=== PATIENT | male | born 1965 | race Caucasian/White ===

== ENCOUNTER 2023-10-13 14:02 | Outpatient (OUT) | payer OTHER, SELFPAY ==
--- NOTE | 2023-10-13 14:23 | XR_ITS ---
The [address] [address] Patient Name: PEGGY KEMP MRN: [id number] date: 1965 Sex: M Assigned Patient Location: LAB Current Patient Location: Accession/Order Number: [id number] Exam Date: 10/13/2023 14:30 Report Date: 10/14/2023 07:31 At the request of: NADIA PONCE Procedure: XR abdomen 1V EXAMINATION: XR abdomen 1V HISTORY: Kidney Stone N20.0 COMPARISON: 10/07/2022 FINDINGS: KIDNEY/URETER - RIGHT: No visible renal or ureteral calcifications. KIDNEY/URETER - LEFT: Mid pole nephrolithiasis, stable PELVIS: No visible ureteral calcifications. Any visible calcifications favor phleboliths. BOWEL: No abnormal dilation or deviation. BONES: No acute abnormality. OTHER: Negative. No abnormal gaseous collections. XR/XR abdomen 1V IMPRESSION: Stable left nephrolithiasis measuring up to 4 mm Electronically authenticated by: SAMIRA VARNER Date: 10/14/2023 07:31
== END 2023-10-13 14:03 | disposition home or self-care (01) ==
LOC: LAB 14:08
PROVIDERS: PCP Family Medicine; Visit Provider Urology
DX: N40.0 Benign prostatic hyperplasia without lower urinary tract symptoms (principal); N20.0 Calculus of kidney
CPT/HCPCS: 36415; 74018; 84153

== ENCOUNTER 2024-10-21 08:24 | Outpatient (OUT) | payer OTHER, SELFPAY ==
--- NOTE | 2024-10-21 08:49 | XR_ITS ---
The [address] [address] Patient Name: PEGGY KEMP MRN: [id number] date: 1965 Sex: M Assigned Patient Location: LAB Current Patient Location: LAB Accession/Order Number: [id number] Exam Date: 10/21/2024 09:22 Report Date: 10/21/2024 09:25 At the request of: NADIA PONCE MD Procedure: XR abdomen 1V SINGLE VIEW ABDOMEN COMPARISON: 10/13/2023 CLINICAL DATA: Follow-up in patient with history of left-sided stone. Supine views of the abdomen and pelvis were obtained. A 3 mm calcified stone is again noted at the midpole of the left kidney. There are no obvious radiopaque renal stones on the right however the kidney is also partially obscured by bowel gas and stool. No suspect ureteral or bladder stones are noted. No soft tissue masses are seen. The bony structures are intact. XR/XR abdomen 1V IMPRESSION: CONTINUED LEFT NEPHROLITHIASIS. Impression dictated by: Jennifer Rodriguez M.D.10/21/2024 9:25 AM Dictation Location: [place] [address] Electronically authenticated by: [id number] Date: 10/21/2024 09:25
[2024-10-21 09:46] LABS: Prostate Specific Antigen Dx 2.48 ng/mL (<=4.00)
== END 2024-10-21 08:25 | disposition home or self-care (01) ==
PROVIDERS: Visit Provider Urology
DX: N20.0 Calculus of kidney (principal); N40.0 Benign prostatic hyperplasia without lower urinary tract symptoms
CPT/HCPCS: 36415; 74018; 84153

== ENCOUNTER 2025-01-13 09:31 | Outpatient (OUT) | payer OTHER, SELFPAY ==
--- OUTSIDE RECORDS SUMMARY | 2025-01-13 09:37 | XMS_ITS | Data Portability ---
Author Organization [place] [facility] Address [address] [place] [address] Assessment No assessment recorded. Plan of Treatment Reminders Order Date Submit Date Provider Last Modified By Organization Details Last Modified Time Details Appointments None recorded . Lab None recorded . Referral None recorded . Procedures None recorded . Surgeries None recorded . Imaging XR, ankle 025 09/08/19 25 [email or web address] [facility], [address], [place], [address], 18:29:36 XR, lumbar spine 025 09/08/19 25 [email or web address] [facility], [address], [place], [address], 18:29:17 Medication Orders None recorded . Patient TargetsNo targets recorded. Patient InstructionsNo instructions recorded. Reason for Referral None Reported. Results Created Date Observation Date Name Description Value Unit Range Abnormal Flag Note LastModifiedBy Organization Detail LastModifiedTime 09/06/19 25 09/06/2024 XR, ankle No observ ation record ed. BARCODE Not Available 2024 16:50:43 09/08/19 25 09/08/2024 XR, lumba r spine No observ ation record ed. [email or web address] [facility] [address], [place], [address], 09/10/2024 12:18:21 09/08/19 25 09/08/2024 XR, ankle No observ ation record ed. [email or web address] [facility] [address], [place], [address], 09/08/2024 18:32:08 Result Notes None recorded. Medical Equipment None Reported. Medications Name Sig Start Date Stop Date Status Note LastModified by Organization Details LastModified Time atorvastatin 40 mg tablet active Not Available Not Available Not Available hydrocodone 5 mg-acetamino phen 325 mg tablet TAKE ONE TABLET BY MOUTH EVERY 6 HOURS NEEDED FOR SEVERE pain FOR UP TO FIVE DAYS. active Not Available Not Available N ot Available pantoprazole 20 mg tablet,delay ed release active Not Available Not Available N ot Available cephalexin 500 mg capsule TAKE ONE CAPSULE BY MOUTH TWICE DAILY FOR 10 DAYS active Not Available Not Available No t Available pantoprazole 40 mg tablet,delay ed release active Not Available Not Available N ot Available peg 3350-electro lytes 236 gram-22.74 gram-6.74 gram-5.86 gram solution take ACCORDING to PROCEDURE PREP INSTRUCTION S active Not Available Not Available No t Available FeroSul 325 mg (65 mg iron) tablet take 1 tablet by mouth twice a day active Not Available Not Available No t Available Vitals None Recorded Social History None recorded. Functional Status None recorded. Mental Status None recorded. Family History Nothing Reported. Medical History No medical history recorded. Past Encounters Encounter ID Performer Location Encounter Start Date Encounter Closed Date Diagnosis/Indication Diagnosis SNOMED-CT Code Diagnosis ICD10 Code Diagnosis Note [id number] Juan Ratliff MD [facility] [address] [place] [address] 09/06/2024 10:45:51 09/08/2024 09:24:00 Low back pain 956174127 M54.50 Pain of le ft ankle joint 5779002204 4239319 M25.572 Health Concerns Section Related Observation LastModified by Organization Detai ls LastModified Time None Recorded Concern Status LastModified by Organization Details LastModified Time None Recorded Advance Directives Directive None Recorded Payers Insurance Date Sequence Insurance Name Policy Number Policy Szymanski Covered Member ID Szymanski Member ID Guarantor Name 09/08/2024 1 *SELF PAY* Jesus Soto [facility] 09/08/2024 [employer] [facility] [id number] [facility]
--- OUTSIDE RECORDS SUMMARY | 2025-01-13 09:37 | XMS_ITS | Patient Health Record ---
Author Organization [facility] Address [address] [id number] Care Team Providers Care Human Resource Consultant Name Role Phone Khang Dinero Primary Care Provider Apurva Paredes Unavailable [phone] JulianMorgan perry Unavailable [phone] Allergies No Known Allergies Results Component Value Reference Range Notes Esophagogastroduodenoscopy ( EGD) Reviewed date:02/05/2024 09:21:11 AM Interpretation: Performing Lab: Notes/Report: Barium Swallow Reviewed date:09/03/2024 10:02:08 AM Interpretation: Performing Lab: Notes/Report: Reason For Referral No Information Medications Medication SIG (Take, Route, Frequency, Duration) Notes Start Date End Date Status Lipitor Atorvastin Active Pantoprazole Sodium 40 MG 1 tablet Orall y twice a day; Duration: 30 days Active Social History Tobacco Use: Social History Observation Description Date Details (start date - stop date) Never Smoker NA - NA Alcohol Screen Question Answer Notes Did you have a drink contain ing alcohol in the past year? Yes How often did you have a dri nk containing alcohol in the past year? 2 to 4 times a month (2 points) Points 2 Interpretation Negative Smoking Question Answer Notes Status nonsmoker Section Notes: . . . . . 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 Problem Hematemesis (8178611) Hematemesis, unspecified whether nausea present (K92.0) Active confirmed Vital Signs Heart Rate 68 /min 10/28/2024 Blood pressure diastolic 80 mm Hg 10/28/2024 Height 68 in 10/28/2024 Blood pressure systolic 130 mm Hg 10/28/2024 Weight 190 lbs 10/28/2024 BMI 28.89 kg/m2 10/28/2024 Encounters Encounter Location Date Provider Diagnosis [facility] [address] [place] [id number] 04/08/2024 Morgan Jordan [facility] [address] [id number] 02/05/2024 Apurva Kay Mckinley's esophagus K22.70 and Iron deficiency anemia D50.9 [facility] [address] [id number] 06/09/2024 Apurva Kay Dysphagia R13.10 and Mckinley's esophagus K22.70 [facility] [address] [place] [id number] 10/28/2024 Apurva Kay Dysphagia R13.10 and Mckinley's esophagus K22.70 [facility] [address] [place] [id number] 02/05/2024 Apurva Kay [facility] [address] [place] [id number] 04/13/2024 Apurva Kay [facility] [address] [id number] 09/03/2024 Apurva Kay Dysphagia R13.10 [facility] [address] [place] [id number] 10/28/2024 Apurva Kay [facility] [address] [place] [address] [id number] 11/15/2024 Apurva Kay Assessments Encounter Date Diagnosis (ICD Code) Assessment Notes Treatment Notes Treatment Clinical Notes Section Notes 02/05/2024 Mckinley's esophagus (ICD-10 - K22.70) Will attempt to obtain records from [facility] and will plan for a repeat EGD in 03/2024, as recommended. Once records are reviewed, if recommendations are for VCE after 6 months, will complete in 06/2024. In the meantime, will continue to monitor labs, completing per oncology, who he continues to follow. Should remain on daily iron supplementation, as well as life-long PPI therapy, given findings of long-segment Mckinley's and increased risk of malignancy associated with such. Pending findings of repeat EGD, ongoing recommendations will be determined. He was also reminded that PPIs work best when taken on an empty stomach, ~30 minutes before meals. 06/09/2024 Dysphagia (ICD-10 - R13.10) Given dysphagia that continues to occur intermittently, have considered that esophageal etiologies may be to blame, though dilation did not appear necessary, based on EGD findings. Have considered EM, though he does not believe that esophageal causes are to blame, feeling that difficulties occur when swallowing. Have ordered a barium swallow study to evaluate for such and based on findings, will considered if additional testing verses treatment is necessary. In the meantime, will continue with twice daily PPI therapy and reminded him that PPIs work best when taken on an empty stomach, ~30 minutes before meals. 09/03/2024 Dysphagia (ICD-10 - R13.10) 10/28/2024 Dysphagia (ICD-10 - R13.10) Obtain EM results, when available. Consider referral to ENT. He recently completed the EM, but I do not yet have these results. Other testing has been unremarkable, not explaining the cause of ongoing dysphagia. Pending unremarkable findings with the EM, would recommend follow up with ENT to assess for other possible causes. He is not currently interested in pursuing additional testing/treatment, telling me that he is getting used to the symptoms, knowing that he has to drink water when he eats. Will reassess following review of EM results. Should continue on PPI therapy, in the meantime and was reminded that PPIs work best when taken on an empty stomach, ~30 minutes before meals. Additionally, discussed with him that he is due for a repeat EGD in 03/2025, due to findings of Mckinley's. Will plan for follow up with him after the EGD, unless necessary sooner. 10/28/2024 Mckinley's esophagus (ICD-10 - K22.70) He recently completed the EM, but I do not yet have these results. Other testing has been unremarkable, not explaining the cause of ongoing dysphagia. Pending unremarkable findings with the EM, would recommend follow up with ENT to assess for other possible causes. He is not currently interested in pursuing additional testing/treatment, telling me that he is getting used to the symptoms, knowing that he has to drink water when he eats. Will reassess following review of EM results. Should continue on PPI therapy, in the meantime and was reminded that PPIs work best when taken on an empty stomach, ~30 minutes before meals. Additionally, discussed with him that he is due for a repeat EGD in 03/2025, due to findings of Mckinley's. Will plan for follow up with him after the EGD, unless necessary sooner. 06/09/2024 Mckinley's esophagus (ICD-10 - K22.70) Given dysphagia that continues to occur intermittently, have considered that esophageal etiologies may be to blame, though dilation did not appear necessary, based on EGD findings. Have considered EM, though he does not believe that esophageal causes are to blame, feeling that difficulties occur when swallowing. Have ordered a barium swallow study to evaluate for such and based on findings, will considered if additional testing verses treatment is necessary. In the meantime, will continue with twice daily PPI therapy and reminded him that PPIs work best when taken on an empty stomach, ~30 minutes before meals. 02/05/2024 Iron deficiency anemia (ICD-10 - D50.9) Obtain records from [facility] This consultation was provided in collaboration with Dr. Sandy Will attempt to obtain records from [facility] and will plan for a repeat EGD in 03/2024, as recommended. Once records are reviewed, if recommendations are for VCE after 6 months, will complete in 06/2024. In the meantime, will continue to monitor labs, completing per oncology, who he continues to follow. Should remain on daily iron supplementation, as well as life-long PPI therapy, given findings of long-segment Mckinley's and increased risk of malignancy associated with such. Pending findings of repeat EGD, ongoing recommendations will be determined. He was also reminded that PPIs work best when taken on an empty stomach, ~30 minutes before meals. Plan Of Treatment Pending Test Test Name Order Date Esophageal Manometry 09/03/2024 Double balloon enteroscopy 11/07/2023 Insurance Providers Payer Name Payer Address Payer Phone Subscriber Number Group Number Insured Name Patient Relationship to Insured Coverage Start Date Coverage End Date [facility] [address] [place] [address] [id number] Refugio Soto Self - patient is the insured Medical (General) History Medical History History ICD Code kidney stones tonsillitis overweight hyperlipidemia gastric ulcer rotator cuff tear - Right Hiatal hernia esophagitis gastritis duodenal ulcer intestinal metaplasia hemorrhoids diverticulosis Mckinley's esophagus iron deficiency anemia Surgical History Surgery Date(Month/Year) tonsillectomy colonoscopy kidney stone removal EGD shoulder surgery - Right double balloon enteroscopy foot surgery
--- OUTSIDE RECORDS SUMMARY | 2025-01-13 09:37 | XMS_ITS | Encounter Summary ---
Author Organization [facility] Address [address] [place] [address] Care Team Providers Care Police Reserves Commander Name Role Phone Eva Cole MD Unavailable Juan Carlos Castellano MD Primary Care Provider [phone] Encounter Details Date Type Department Care Team ([facility] st Contact Info) Description 05/03/2024 Abstract [facility] [address] [place] [address] Jan Roberts, DPM FACFAS [address] [place] [address] Social History Tobacco Use Types Packs/Day Years Used Date Smoking Tobacco: Never Smokeless Tobacco: Never Alcohol Use Standard Drinks/Week Comments Not Currently 0 (1 standard drink = 0.6 oz pur e alcohol) Sex and Gender Information Value Date Recorded Sex Assigned at Male 03/08/2024 11:42 AM EDT Legal Sex Male 11:10 PM EDT Gender Identity Male 03/08/2024 11:42 AM EDT Sexual Orientation Straight 03/08/2024 11 :42 AM EDT documented as of this encounter Plan of Treatment Not on file documented as of this encounter Visit Diagnoses Not on filedocumented in this encounter Care Teams Police Reserves Commander Relationship Specialty Start Date End Date Juan Carlos Castellano MD [address] [place] [address] PCP - General Family Medicine 04/06/24 Eva Cole MD [address] [place] [address] Referring Physician Neurology 03/15/24 documented as of this encounter
--- OUTSIDE RECORDS SUMMARY | 2025-01-13 09:38 | XMS_ITS | Clinical Summary ---
Author Organization [employer] tem Address [id number] [address] [place] [address] Care Team Providers Care Family Practitioner Name Role Phone Unavailable Primary Care Provider Unavailabl e Allergies No known active allergies Social History Tobacco Use Types Packs/Day Years Used Date Smoking Tobacco: Never Assessed Sex and Gender Information Value Date Recorded Sex Assigned at Not on file Legal Sex Male 8:39 AM EDT Gender Identity Not on file Sexual Orientation Not on file Plan of Treatment Health Maintenance Due Date Last Done Comments Depression Screening 1979 Tobacco Screening 1979 Adult BMI Screening 1985 DTaP,Tdap and Td Vaccines (1 - Tdap) 1986 COVID-19 Vaccine (2 - season) 2024 Influenza Vaccine 03/21/2025 04/19/2024 Zoster (Shingles) Vaccine Completed 11/25/2022, 08/2022 Medical Devices Not on file Procedures Procedure Name Priority Date/Time Associated Diagnosis Comments RESP/PULM RESULTS REPORT (SCANNED INTO EHR) 10/14/2024 10:06 AM EDT from Last 3 Months Insurance [facility]
--- OUTSIDE RECORDS SUMMARY | 2025-01-13 09:38 | XMS_ITS | Clinical Summary ---
Author Organization [facility] Address [address] [place] [address] Care Team Providers Care Client Evaluator Name Role Phone Eva Cole MD Unavailable [phone] Juan Carlos Castellano MD Primary Care Provider Allergies No known active allergies Medications atorvastatin (Lipitor) 40 MG tablet 1 tab(s), Oral, Daily, # 90 tab(s), 3 Refill(s), [facility]acy: [facility], TAKE 1 TABLET DAILY, 172.72, cm, 08/18/23 13:05:00 EST, Height, 83.9, kg, 09/15/23 10:01:00 EST, Weight Dosing 09/29/2023 Active FeroSul 325 (65 Fe) MG tablet Take 1 tablet by mouth in the morning and 1 tablet before bedtime. Active pantoprazole (ProtoNix) 20 MG EC tablet 12/11/2023 Active Active Problems Problem Noted Date Diagnosed Date Hallux rigidus, right foot 05/07/2024 Hyperlipemia 03/15/2024 Plantar fasciitis 12/20/2023 Family History Relation Name Status Comments Father Mother Social History Tobacco Use Types Packs/Day Years Used Date Smoking Tobacco: Never Smokeless Tobacco: Never Tobacco Cessation:Counseling Given: Not Answered Alcohol Use Standard Drinks/Week Comments Never 0 (1 standard drink = 0.6 oz pur e alcohol) Sex and Gender Information Value Date Recorded Sex Assigned at Male 03/08/2024 11:42 AM EDT Legal Sex Male 11:10 PM EDT Gender Identity Male 03/08/2024 11:42 AM EDT Sexual Orientation Straight 03/08/2024 11 :42 AM EDT Last Filed Vital Signs Vital Sign Reading Time Taken Comments Blood Pressure - - Pulse - - Temperature 36.2 C (97.1 F) 06/23/2024 1:51 PM EST Respiratory Rate - - Oxygen Saturation - - Inhaled Oxygen Concentration - - Weight 80.3 kg (177 lb) 06/23/2024 1:51 PM EST Height 172.7 cm (5' 8 ) 06/23/2024 1:51 PM EST Body Mass Index 26.91 06/23/2024 1:51 PM EST Plan of Treatment Health Maintenance Due Date Last Done Comments CT Colonography 1967 FIT-DNA 1967 FIT 1967 Sigmoidoscopy 1967 FOBT 08/14/2023 08/14/2022 Colonoscopy 09/28/2033 09/29/2023, 09/29/2023, 08/22 Colorectal Cancer Screening 09/28/2033 Influenza Vaccine Completed 04/19/2024, , 05/06/2021, Additional history exists Insurance Care Teams Client Evaluator Relationship Specialty Start Date End Date Juan Carlos Castellano MD [address] [place] [address] PCP - General Family Medicine 04/06/24 Eva Cole MD [address] [place] [address] Referring Physician Neurology 03/15/24
--- OUTSIDE RECORDS SUMMARY | 2025-01-13 09:38 | XMS_ITS | Encounter Summary ---
Author Organization [facility] Address [address] [place] [address] Care Team Providers Care Loss Prevention Operations Manager Name Role Phone Eva Cole MD Unavailable Juan Carlos Castellano MD Primary Care Provider Encounter Details Date Type Department Care Team (Late st Contact Info) Description 03/18/2024 Abstract [facility] [address] [place] [address] Jan Roberts, DPM FACFAS [address] [place] [address] Social History Tobacco Use Types Packs/Day Years [...] on filedocumented in this encounter Care Teams Loss Prevention Operations Manager Relationship Specialty Start Date End Date Juan Carlos Castellano MD [address] [place] [address] PCP - General Family Medicine 04/06/24 Eva Cole MD [address] [place] [address] Referring Physician Neurology 03/15/24 documented as of this encounter
[2025-01-13 10:05] LABS: Basophils Absolute Auto 0.1 10^3/uL (0.0-0.1); Basophils Percent Auto 0.8 % (0.2-2.0); Eosinophils Absolute Auto 0.2 10^3/uL (0.0-0.7); Eosinophils Percent Auto 2.5 % (0.9-7.0); Immature Granulocytes Abs Auto 0.02 10^3/uL (0.00-0.03); Immature Granulocytes Pct Auto 0.3 % (0.0-0.5); Lymphocytes Absolute Auto 1.9 10^3/uL (1.2-3.8); Lymphocytes Percent Auto 30.4 % (20.5-60.0); Mean Corpuscular HGB Conc 34.7 g/dL (29.9-35.2); Mean Corpuscular Hemoglobin 31.8 pg (25.9-34.0); Mean Corpuscular Volume 91.8 fL (80.0-94.0); Mean Platelet Volume 9.6 fL (9.5-13.5); Monocytes Absolute Auto 0.5 10^3/uL (0.3-0.8); Monocytes Percent Auto 7.4 % (1.7-12.0); Neutrophils Absolute Auto 3.6 10^3/uL (1.4-6.5); Neutrophils Percent Auto 58.6 % (43.0-75.0); Platelet Count 209 10^3/uL (150-450); Red Blood Count 5.34 10^6/uL (4.70-6.10); White Blood Count 6.1 10^3/uL (4.0-11.0)
[2025-01-13 12:34] LABS: Percent Iron Saturation 25.1 %
[2025-01-13 12:37] LABS: Chol HDL Ratio 3.4; Cholesterol 216 mg/dL (<=200); HDL Cholesterol 63 mg/dL (40-60); Triglycerides 144 mg/dL (<=150); VLDL CHOLESTEROL 28.8 mg/dL
== END 2025-01-13 09:32 | disposition home or self-care (01) ==
LOC: LAB 09:34
DX: D50.9 Iron deficiency anemia, unspecified (principal); E78.2 Mixed hyperlipidemia
CPT/HCPCS: 36415; 80061; 83540; 83550; 85025

== ENCOUNTER 2025-01-13 09:39 | Outpatient (OUT) | payer OTHER, SELFPAY ==
[2025-01-13 12:47] LABS: Prostate Specific Antigen Dx 1.05 ng/mL (<=4.00)
== END 2025-01-13 09:40 | disposition home or self-care (01) ==
LOC: LAB 09:44
PROVIDERS: Visit Provider Urology
DX: D50.9 Iron deficiency anemia, unspecified (principal); E78.2 Mixed hyperlipidemia; R97.20 Elevated prostate specific antigen [PSA]
CPT/HCPCS: 36415; 80061; 83540; 83550; 84153; 85025

== ENCOUNTER 2025-04-19 08:27 | Outpatient (OUT) | payer OTHER, SELFPAY ==
--- OUTSIDE RECORDS SUMMARY | 2024-04-08 03:30 | XMS_ITS ---
Author Organization Telehealth Visit Address [address] [id number] Care Team Providers Care V Belt Builder Name Role Phone Khang Dinero Primary Care Provider UnavailApurva Stuart Unavailable [phone] Morgan Jordan [phone] REASON FOR VISIT Mckinley's esophagus Encounters Encounter Location Date Provider Diagnosis [facility] [address] [place] [phone] 04/08/2024 Morgan Jordan Plan Of Treatment No Information Progress Notes * Refugio KEMP EDOB:1965 (60 yo M)Acc No.[id number]:04/08/2024 Patient: Ale Refugio ZURITA Provider: Neil Jordan MD :1965 A ge:59 Y S ex:Male Date:04/08/2024 [facility] [facility] [place] Pcp:Khang Dinero * Images: Billing Information: * Visit Code: * Procedure Codes: * Electronic signature of Greg Jordan MD on 04/19/2025 at 08:31 AM EDT Sign off status: Pending * Provider: Neil Jordan MD Date: 04/08/2024 Generated for Printi ng/Faxing/eTransmitting on: 04/19/2025 08:31 AM EDT
--- OUTSIDE RECORDS SUMMARY | 2024-10-25 08:24 | XMS_ITS ---
Author Name Auto Generated Organization OHIP Support Name Relationship Address Phone CECY KEMP Next of Kin Unknown + Cecy Kemp Next of [address] [facility] [address] + CECY KEMP Next of Kin [address] [place] [address] + RAFIA CAVAZOS Next of Kin Unknown [phone] CECY KEMP Next of Kin [address] [place] [address] + ~([phone] KN, RAFIA Next of Kin Unknown [phone] CECY KEMP Next of Kin [address] [facility] [place] [address] + ~[phone] KNRAFIA WATTERS Next of Kin Unknown [phone] CECY KEMP Next of Kin [address] [place] [address] + ~([phone] DIRK RAFIA Next of Kin Unknown [phone] CECY KEMP Next of Kin [address] [place] [address] + ~([phone] DIRK RAFIA Next of Kin Unknown [phone] CECY KEMP Next of Kin [address] [place] [address] + DIRK RAFIA Next of Kin Unknown [phone] CECY KEMP Next of Kin [address] [place] [address] + ~[phone] KNOPALLER, RAFIA Next of Kin Unknown [phone] CECY KEMP Next of Kin [address] [place] [address] + ~([phone] KNEDLER, RAFIA Next of Kin Unknown [phone] CECY KEMP Next of Kin [address] [place] [address] + ~([phone] KNEDLER, RAFIA Next of Kin Unknown [phone] CECY KEMP Next of Kin [address] [facility] [place] [address] + KN, RAFIA Next of Kin Unknown [phone] CECY KEMP Next of Kin [address] [facility] [place] [address] + KN, RAFIA Next of Kin Unknown [phone] CECY KEMP Next of Kin [address] [facility] [place] [address] + KNEDJEANA, RAFIA Next of Kin Unknown [phone] CECY KEMP Next of Kin [address] [place] [address], [place] [address] + DIRK, RAFIA Next of Kin Unknown [phone] CECY KEMP Next of Kin [address] [facility] [place] [address] + KNOPALLER, RAFIA Next of Kin Unknown [phone] Care Team Providers Care Christmas Bell Ringer Name Role Phone ESTEPHANIE TEJEDA Attending Unavailable ESTEPHANIE TEJEDA Attending Unavailable ESTEPHANIE TEJEDA Attending Unavailable JOCELYNE CASTELLANO Attending Unavailable JOCELYNE CASTELLANO Referring Unavailable JOCELYNE CASTELLANO Attending Unavailable JOCELYNE CASTELLANO Referring Unavailable Jerome Gonzalez Admitting Unavailable NON STAFF Primary Care Unavailable Jerome Gonzalez Attending Unavailable Aura, Pola Attending Unavailab le Aura, Pola Admitting Unavailab le NON STAFF Primary Care Unavailable Dolce, Estephanie R Attending Unavailable Gonya, Eva Primary Care Unavailable Jerome Parra Unavailable Dolce, Estephanie R Admitting Unavailable Smolenski, Apurva Admitting Unavailable Smolenski, Apurva Attending Unavailable Gonya, Eva Primary Care Unavailable Gonya, Eva Primary Care Unavailable Aly, Johnna Admitting Unavailable Aly, Johnna Attending Unavailable Gonya, Eva Primary Care Unavailable Aly, Johnna Admitting Unavailable Aly, Johnna Attending Unavailable Gonya, Eva Primary Care Unavailable Gonya, Eva Attending Unavailable Juan Carlos Castellano Primary Care Unavailable Gonya, Vea Attending Unavailable Gonya, Eva Primary Care Unavailable Dolce, Estephanie R Admitting Unavailable Dolce, Estephanei R Attending Unavailable LENCHO HESTER Primary Care Unavailable GARSIA, Alonzo Garcia Attending Unavailable PROBLEMS DATE TYPE CONDITION / CODE ATTENDING STATUS GERTRUDIS [facility] 09/29/2024 Unknown Sleep apnea, uns pecified / G47.30(ICD-10) Jerome Gonzalez [facility] 09/29/2024 Unknown Psychophysiologi c insomnia / F51.04(ICD-10) Jerome Gonzalez. [facility] PROCEDURES No Procedure Records Found RESULTS PATIENT EDUCATION Observed: 10/25/2024 9:03 AM Status: F Source: [facility] Patient Education Oncology Prostate Cancer Screening Prostate cancer screening is testing that is done to check for the presence of prostate cancer in men. The prostate gland is a walnut-sized gland that is located below the bladder and in front of the rectum in males. The function of the prostate is to add fluid to semen during ejaculation. Prostate cancer is one of the most common types of cancer in men. Who should have prostate cancer screening? Screening recommendations vary based on age and other risk factors, as well as between the professional organizations who make the recommendations. In general, screening is recommended if: ??? You are age 50 to 70 and have an average risk for prostate cancer. You should talk with your health care provider about your need for screening and how often screening should be done. Because most prostate cancers are slow growing and will not cause , screening in this age group is generally reserved for men who have a 10- to 15-year life expectancy. ??? You are younger than age 50, and you have these risk factors: ? Having a father, brother, or uncle who has been diagnosed with prostate cancer. The risk is higher if your family member's cancer occurred at an early age or if you have multiple family members with prostate cancer at an early age. ? Being a male who is Black or is of Navjot or sub-Saharan descent. In general, screening is not recommended if: ??? You are younger than age 40. ??? You are between the ages of 40 and 49 and you have no risk factors. ??? You are 70 years of age or older. At this age, the risks that screening can cause are greater than the benefits that it may provide. If you are at high risk for prostate cancer, your health care provider may recommend that you have screenings more often or that you start screening at a younger age. How is screening for prostate cancer done? The recommended prostate cancer screening test is a blood test called the prostate-specific antigen (PSA) test. PSA is a protein that is made in the prostate. As you age, your prostate naturally produces more PSA. Abnormally high PSA levels may be caused by: ??? Prostate cancer. ??? An enlarged prostate that is not caused by cancer (benign prostatic hyperplasia, or BPH). This condition is very common in older men. ??? A prostate gland infection (prostatitis) or urinary tract infection. ??? Certain medicines such as male hormones (like testosterone) or other medicines that raise testosterone levels. A rectal exam may be done as part of prostate cancer screening to help provide information about the size of your prostate gland. When a rectal exam is performed, it should be done after the PSA level is drawn to avoid any effect on the results. Depending on the PSA results, you may need more tests, such as: ??? A physical exam to check the size of your prostate gland, if not done as part of screening. ??? Blood and imaging tests. ??? A procedure to remove tissue samples from your prostate gland for testing (biopsy). This is the only way to know for certain if you have prostate cancer. What are the benefits of prostate cancer screening? Screening can help to identify cancer at an early stage, before symptoms start and when the cancer can be treated more easily. ??? There is a small chance that screening may lower your risk of dying from prostate cancer. The chance is small because prostate cancer is a slow-growing cancer, and most men with prostate cancer from a different cause. What are the risks of prostate cancer screening? The main risk of prostate cancer screening is diagnosing and treating prostate cancer that would never have caused any symptoms or problems. This is called overdiagnosisand overtreatment. PSA screening cannot tell you if your PSA is high due to cancer or a different cause. A prostate biopsy is the only procedure to diagnose prostate cancer. Even the results of a biopsy may not tell you if your cancer needs to be treated. Slow-growing prostate cancer may not need any treatment other than monitoring, so diagnosing and treating it may cause unnecessary stress or other side effects. Questions to ask your health care provider ??? When should I start prostate cancer screening? What is my risk for prostate cancer? How often do I need screening? What type of screening tests do I need? How do I get my test results? What do my results mean? Do I need treatment? Where to find more information ??? The [place] Cancer [employer]: www.cancer.org ??? [employer] U[employer] Association: www.auanet.org Contact a health care provider if: ??? You have difficulty urinating. ??? You have pain when you urinate or ejaculate. ??? You have blood in your urine or semen. ??? You have pain in your back or in the area of your prostate. Summary ??? Prostate cancer is a common type of cancer in men. The prostate gland is located below the bladder and in front of the rectum. This gland adds fluid to semen during ejaculation. ??? Prostate cancer screening may identify cancer at an early stage, when the cancer can be treated more easily and is less likely to have spread to other areas of the body. ??? The prostate-specific antigen (PSA) test is the recommended screening test for prostate cancer, but it has associated risks. ??? Discuss the risks and benefits of prostate cancer screening with your health care provider. If you are age 70 or older, the risks that screening can cause are greater than the benefits that it may provide. This information is not intended to replace advice given to you by your health care provider. Make sure you discuss any questions you have with your health care provider. Document Revised: 12/31/2021 Document Reviewed: 12/31/2021 [employer] Patient Education ? 2023 [employer]. AMBULATORY VISIT SUMMARY Observed: 10/25 8:24 AM Status: F Source: [facility] Ambulatory Visit Summary REFUGIO KEMP :1965 Visit Date:10/25/2024 Ambulatory Visit Instructions Your Diagnosis Elevated PSA BPH without urinary obstruction Kidney stone Your Care Team Attending Physician - Alonzo GARSIA MD Primary Care Physician - LENCHO HESTER DO This Is Your Medications List Contact prescribing physician if questions or concerns atorvastatin pantoprazole (Pantoprazole [address] Tab) Procedures Performed ESWL of kidney (07/06/2015), History of vasectomy, Operative procedure on foot, Rotator cuff. Discharge Vitals Heart Rate (Peripheral) 73 Respiratory Rate 20 Blood Pressure 149/96 Height 69 in Height 174 cm Weight 184.968 lb Weight 83.9 kg BMI 27.71 What to do next You Need to Schedule the Following Appointments Follow Up with KRIS GARCIA, Alonzo Garcia, LUIS FERNANDO When: Comments: 6 mos (w 2 PSAs) Where: [facility] [address], [place] [address]- [phone] Medications What How Much When Instructions Unchanged atorvastatin 40 Milligram By Mouth Every day Contact prescribing physician if questions or concerns Unchanged pantoprazole (Pantoprazole [address] Tab) Contact prescribing physician if questions or concerns Allergies No Known Medication Allergies Problems Ongoing - Any problem that you are currently receiving treatment for. 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 Please share your experience with us by completing your survey. We appreciate your feedback and thank you for choosing us for your care. Education Materials Prostate Cancer Screening Prostate cancer screening is testing that is done to check for the presence of prostate cancer in men. The prostate gland is a walnut-sized gland that is located below the bladder and in front of the rectum in males. The function of the prostate is to add fluid to semen during ejaculation. Prostate cancer is one of the most common types of cancer in men. Who should have prostate cancer screening? Screening recommendations vary based on age and other risk factors, as well as between the professional organizations who make the recommendations. In general, screening is recommended if: ??? You are age 50 to 70 and have an average risk for prostate cancer. You should talk with your health care provider about your need for screening and how often screening should be done. Because most prostate cancers are slow growing and will not cause , screening in this age group is generally reserved for men who have a 10- to 15-year life expectancy. ??? You are younger than age 50, and you have these risk factors: ? Having a father, brother, or uncle who has been diagnosed with prostate cancer. The risk is higher if your family member's cancer occurred at an early age or if you have multiple family members with prostate cancer at an early age. ? Being a male who is Black or is of Navjot or sub-Saharan descent. In general, screening is not recommended if: ??? You are younger than age 40. ??? You are between the ages of 40 and 49 and you have no risk factors. ??? You are 70 years of age or older. At this age, the risks that screening can cause are greater than the benefits that it may provide. If you are at high risk for prostate cancer, your health care provider may recommend that you have screenings more often or that you start screening at a younger age. How is screening for prostate cancer done? The recommended prostate cancer screening test is a blood test called the prostate-specific antigen (PSA) test. PSA is a protein that is made in the prostate. As you age, your prostate naturally produces more PSA. Abnormally high PSA levels may be caused by: ??? Prostate cancer. ??? An enlarged prostate that is not caused by cancer (benign prostatic hyperplasia, or BPH). This condition is very common in older men. ??? A prostate gland infection (prostatitis) or urinary tract infection. ??? Certain medicines such as male hormones (like testosterone) or other medicines that raise testosterone levels. A rectal exam may be done as part of prostate cancer screening to help provide information about the size of your prostate gland. When a rectal exam is performed, it should be done after the PSA level is drawn to avoid any effect on the results. Depending on the PSA results, you may need more tests, such as: ??? A physical exam to check the size of your prostate gland, if not done as part of screening. ??? Blood and imaging tests. ??? A procedure to remove tissue samples from your prostate gland for testing (biopsy). This is the only way to know for certain if you have prostate cancer. What are the benefits of prostate cancer screening? Screening can help to identify cancer at an early stage, before symptoms start and when the cancer can be treated more easily. ??? There is a small chance that screening may lower your risk of dying from prostate cancer. The chance is small because prostate cancer is a slow-growing cancer, and most men with prostate cancer from a different cause. What are the risks of prostate cancer screening? The main risk of prostate cancer screening is diagnosing and treating prostate cancer that would never have caused any symptoms or problems. This is called overdiagnosisand overtreatment. PSA screening cannot tell you if your PSA is high due to cancer or a different cause. A prostate biopsy is the only procedure to diagnose prostate cancer. Even the results of a biopsy may not tell you if your cancer needs to be treated. Slow-growing prostate cancer may not need any treatment other than monitoring, so diagnosing and treating it may cause unnecessary stress or other side effects. Questions to ask your health care provider ??? When should I start prostate cancer screening? What is my risk for prostate cancer? How often do I need screening? What type of screening tests do I need? How do I get my test results? What do my results mean? Do I need treatment? Where to find more information ??? The [employer] Cancer Society: www.cancer.org ??? [employer] U[employer] Association: www.auanet.org Contact a health care provider if: ??? You have difficulty urinating. ??? You have pain when you urinate or ejaculate. ??? You have blood in your urine or semen. ??? You have pain in your back or in the area of your prostate. Summary ??? Prostate cancer is a common type of cancer in men. The prostate gland is located below the bladder and in front of the rectum. This gland adds fluid to semen during ejaculation. ??? Prostate cancer screening may identify cancer at an early stage, when the cancer can be treated more easily and is less likely to have spread to other areas of the body. ??? The prostate-specific antigen (PSA) test is the recommended screening test for prostate cancer, but it has associated risks. ??? Discuss the risks and benefits of prostate cancer screening with your health care provider. If you are age 70 or older, the risks that screening can cause are greater than the benefits that it may provide. This information is not intended to replace advice given to you by your health care provider. Make sure you discuss any questions you have with your health care provider. Document Revised: 12/31/2021 Document Reviewed: 12/31/2021 [employer] Patient Education ??? 2023 [employer]. UROLOGY OFFICE/CLINIC NOTE Observed: 01/2025 8:24 AM Status: F Source: [facility] Urology Office/Clinic Note Chief Complaint Patient is here for 1 year follow up with PSA/KUB HPI Staff 1 yr w PSA and KUB. Previous dx: BPH w urinary obstruction, kidney stone. *No urologic meds PSA: 10/13/23 - 0.90 10/21/24 - 2.48 KUB done 10/21/24 History of Present Illness Tests reviewed: reviewed UA, PSA, KUB I have reviewed the previous health record information and history for this patient from Dr. Garsia. I have reviewed and verified the staff HPI to be accurate for this encounter. Review of Systems PHQ Score Initial Depression Screen Score: 0 SCORE ROS - Provider Constitutional: denies weight loss, denies hot flashes. Eyes: denies eye problems. Gastrointestinal: denies nausea, denies vomiting. Cardiovascular: denies chest pain or angina. Integumentary: no dryness Musculoskeletal: denies musculoskeletal symptoms. ENMT: denies otolaryngeal symptoms. Respiratory: no shortness of breath. Heme/Lymph: denies easy bleeding tendency, denies easy bruising tendency. Psychiatric: no confusion, no anxiety. Genitourinary: See HPI. Physical Exam Vitals & Measurements HR: 73(Peripheral) RR: 20 BP: 149/96 HT: 69 in HT: 174 cm WT: 184.968 lb WT: 83.9 kg BMI: 27.71 General Appearance: alert, no distress, well nourished, well developed male. Prostate: normal prostate, estimated weight 30 gms, no hard nodule observed. Assessment/Plan 1. Elevated PSA (R97.20: Elevated prostate specific antigen [PSA]) PSA 06/23/19 - 0.8 10/12/21 - 0.61 10/07/22 - 1.27 10/13/23 - 0.90 10/21/24 - 2.48 JACKELYN: ~30g, benign. No known fam hx of prostate ca. PSA has increased from prior. Discussed possible etiologies including lab error, subclinical prostatitis, or prostate cancer. Recommended pt to repeat level to verify if elevation is true. -PSA in 3 mo, will call pt w results (recall placed) -F/u in 6 mo w PSA 2. BPH without urinary obstruction (N40.0: Benign prostatic hyperplasia without lower urinary tract symptoms) IPSS 0. UA today negative for blood and infection. Not taking any BPH meds. Not voicing any urinary habit complaints. 3. Kidney stone (N20.0: Calculus of kidney) S/p L ESWL 07/06/15. Metabolic workup 2015 - all wnl, except lower urine volume of 1900mL. Stone analysis 09/28/19 - 85% Ca Ox Carbon, 5% Ca Ox Di, 10% Hydroxyapatite. KUB 10/07/22 - 3 mm calcification and a few 1 mm calcifications projecting over left upper pole. KUB 10/13/23 [facility] - Stable left mid pole nephrolithiasis measuring up to 4 mm. KUB 10/21/24 [facility] - 3 mm stone at L midpole. No other stones noted. -Increase fluid intake -Consider repeat metabolic workup in future Follow-up With When Contact Information KRIS GARCIA, Alonzo Garcia, URL [facility] [address], [place] [address] [phone] Additional Instructions: 6 mos (w 2 PSAs) Patient Education Prostate Cancer Screening I, Mel Orourke, personally scribed for Dr. Garsia on 10/25/2024 09:05:39. . Documentation recorded by the scribe, Mel Orourke, accurately reflects the services(s) I performed and decisions made by me. Authenticated by Dr. Garsia on 10/25/2024 09:07:45. 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 Medications atorvastatin, 40 mg, Oral, Daily Pantoprazole [address] Ayers Allergies No Known Medication Allergies Social History Alcohol - Low Risk, 09/24/2019 Substance Abuse - Denies Substance Abuse, 10/25/2024 Tobacco - Low Risk, 10/25/2024 Former smoker, quit more than 30 days ago Tobacco Use:. Never Smokeless Tobacco Use:. Cigarettes, Household tobacco concerns: No. Yes, 10/25/2024 Family History Family history is negative Immunizations Vaccine Date Status influenza virus vaccine, inactivated 04/19/2024 Recorded zoster vaccine, inactivated 11/25/2022 Recorded zoster vaccine, inactivated 09/19/2022 Recorded influenza virus vaccine, inactivated 04/2021 Recorded SARS-CoV-2 (COVID-19) mRNA [id number] vax 2020 Recorded influenza virus vaccine, inactivated 05/19/2020 Recorded influenza virus vaccine, live, trivalent 08/02/2019 Recorded Lab Results Ambulatory Point of Care Results Bilirubin Urine Dipstick: Negative (10/25/24 08:56:00) Blood Urine Dipstick: Negative (10/25/24 08:56:00) Glucose Urine Dipstick: Negative (10/25/24 08:56:00) Ketones Urine Dipstick: Negative (10/25/24 08:56:00) Leukocytes Urine Dipstick: Negative (10/25/24 08:56:00) Nitrite Urine Dipstick: Negative (10/25/24 08:56:00) Protein Urine Dipstick: Negative (10/25/24 08:56:00) Specific [place] Urine Dipstick: <=1.005 (10/25/24 08:56:00) Urine Appearance Urine Dipstick: Clear (10/25/24 08:56:00) Urine Color Urine Dipstick: Light yellow (10/25/24 08:56:00) Urobilinogen Urine Dipstick: Normal 0.2-1 EU/dl (10/25/24 08:56:00) pH Urine Dipstick: 6 (10/25/24 08:56:00) Result Comment: Electronical ly Signed By: Alonzo GARSIA MD\.br\Date and Time Signed: 10/25/24 09:07 EDT\.br\Electronically Co-Signed By: Mel Orourke\.br\Date and Time Co-Signed: 10/25/24 09:05 EDT MEDICATION MANAGEMENT Observed: 09/21/19 7:21 AM Status: C Source: [facility] From: Terri Viera RN ([facility] ([facility] To: Eva Cole CNP; Sent: 09/20/2024 07:21:49 EST Subject: FW: Medication Management Due Date/Time: 09/21/2024 02:19:00 EST Caller Name: REFUGIO KEMP; Caller Number: , [phone] From: [facility] To: Eva Cole CNP Sent: September 20, 2024 1:19:44 AM PULP OPERATOR Subject: Medication Management Due: September 21, 2024 12:02:38 AM PULP OPERATOR On Hold Pending Signature Drug: atorvastatin (atorvastatin 40 mg oral tablet), TAKE 1 TABLET DAILY Quantity: 90 tab(s) Days Supply: 0 Refills: 3 Substitutions Allowed Notes from Pharmacy: Dispensed Drug: atorvastatin (atorvastatin 40 mg oral tablet), TAKE 1 TABLET DAILY Quantity: 90 tab(s) Days Supply: 0 Refills: 3 Substitutions Allowed Notes from Pharmacy: From: Eva Cole APRN, CNP To: [facility] Sent: 09/20/2024 10:41:25 EST Subject: FW: Medication Management Submitted: Complete:atorvastatin (atorvastatin 40 mg oral tablet) Signed by Eva Cole APRN, CNP 09/20/2024 10:41:00 EST Approved with modifications: atorvastatin (ATORVASTATIN TABS 40MG) TAKE 1 TABLET DAILY Qty: 90 tab(s) Days Supply: 0 Refills: 3 Substitutions Allowed Route To Pharmacy - [facility] SUMMARY Observed: 09/06/2024 11:54 AM Status: F Source: [facility] HTMLBase 64 [id number] [file] [id number] XR SWALLOWING FUNCTION Observed: 10:00 AM Status: F Source: [facility] EXAMINATION: XR Swallowing F unction HISTORY: Dysphagia, unspecified FLUORO DOSE: 46.97 seconds, 2.57 mGy Reference air kerma (Ka,r) COMPARISON: No relevant comparison available. TECHNIQUE: A swallowing evaluation was performed with fluoroscopy in the usual manner. Standard level fluoroscopic mode of operation utilized. FINDINGS: ORAL PHASE: Normal deglutition. PHARYNGEAL PHASE: Normal swallowing. ASPIRATION: None. STRUCTURE: Normal. No visible obstruction, stricture, or dilatation. OTHER: Negative. IMPRESSION: No penetration or aspiration observed Final Dictated by: Jerome Her MD Dictated DT/TM: 09/01/24 3:57 Signed (Electronic Signature): Jerome Her MD 09/01/24 3:58 pm Technologist: Sky MEHTA PROVIDER ORDERS Observed: 08/23/2024 11:02 AM Status: F Source: [facility] [id number] OUTSIDE RECORDS Observed: 07/28/2024 9:45 AM Status: F Source: [facility] [id number] OUTSIDE RECORDS Observed: 06/23/2024 9:48 AM Status: F Source: [facility] [id number] OUTSIDE RECORDS Observed: 06/16/2024 1:22 PM Status: F Source: [facility] [id number] OUTSIDE RECORDS Observed: 06/09/2024 5:20 PM Status: F Source: [facility] [id number] PATIENT HANDOUT Observed: 05/27/2024 12:34 PM Status: F Source: [facility] Cardiovascular Raynaud's Phenomenon Raynaud's phenomenon is a condition that affects the blood vessels (arteries) that carry blood to the fingers and toes. The arteries that supply blood to the ears, lips, nipples, or the tip of the nose might also be affected. Raynaud's phenomenon causes the arteries to become narrow temporarily (spasm). As a result, the flow of blood to the affected areas is temporarily decreased. This usually occurs in response to cold temperatures or stress. During an attack, the skin in the affected areas turns white, then blue, and finally red. A person may also feel tingling or numbness in those areas. Attacks usually last for only a brief period, and then the blood flow to the area returns to normal. In most cases, Raynaud's phenomenon does not cause serious health problems. What are the causes? In many cases, the cause of this condition is not known. The condition may occur on its own (primary Raynaud's phenomenon) or may be associated with other diseases or factors (secondary Raynaud's phenomenon). Possible causes may include: ? Diseases or medical conditions that damage the arteries. ? Injuries and repetitive actions that hurt the hands or feet. ? Being exposed to certain chemicals. ? Taking medicines that narrow the arteries. ? Other medical conditions, such as lupus, scleroderma, rheumatoid arthritis, thyroid problems, blood disorders, Sjogren syndrome, or atherosclerosis. What increases the risk? The following factors may make you more likely to develop this condition: ? Being 20?40 years old. ? Being female. ? Having a family history of Raynaud's phenomenon. ? Living in a cold climate. ? Smoking. What are the signs or symptoms? Symptoms of this condition usually occur when you are exposed to cold temperatures or when you have emotional stress. The symptoms may last for a few minutes or up to several hours. They usually affect your fingers but may also affect your toes, nipples, lips, ears, or the tip of your nose. Symptoms may include: ? Changes in skin color. The skin in the affected areas will turn pale or white. The skin may then change from white to bluish to red as normal blood flow returns to the area. ? Numbness, tingling, or pain in the affected areas. In severe cases, symptoms may include: ? Skin sores. ? Tissues decaying and dying (gangrene). How is this diagnosed? This condition may be diagnosed based on: ? Your symptoms and medical history. ? A physical exam. During the exam, you may be asked to put your hands in cold water to check for a reaction to cold temperature. ? Tests, such as: ? Blood tests to check for other diseases or conditions. ? A test to check the movement of blood through your arteries and veins (vascular ultrasound). ? A test in which the skin at the base of your fingernail is examined under a microscope (nailfold capillaroscopy). How is this treated? During an episode, you can take actions to help symptoms go away faster. Options include moving your arms around in a windmill pattern, warming your fingers under warm water, or placing your fingers in a warm body fold, such as your armpit. Long-term treatment for this condition often involves making lifestyle changes and taking steps to control your exposure to cold temperature. For more severe cases, medicine (calcium channel blockers) may be used to improve blood circulation. Follow these instructions at home: Avoiding cold temperatures Take these steps to avoid exposure to cold: ? If possible, stay indoors during cold weather. ? When you go outside during cold weather, dress in layers and wear mittens, a hat, a scarf, and warm footwear. ? Wear mittens or gloves when handling ice or frozen food. ? Use holders for glasses or cans containing cold drinks. ? Let warm water run for a while before taking a shower or bath. ? Warm up the car before driving in cold weather. Lifestyle ? If possible, avoid stressful and emotional situations. Try to find ways to manage your stress, such as: ? Exercise. ? Yoga. ? Meditation. ? Biofeedback. ? Do not use any products that contain nicotine or tobacco. These products include cigarettes, chewing tobacco, and vaping devices, such as e-cigarettes. If you need help quitting, ask your health care provider. ? Avoid secondhand smoke. ? Limit your use of caffeine. ? Switch to decaffeinated coffee, tea, and soda. ? Avoid chocolate. ? Avoid vibrating tools and machinery. General instructions ? Protect your hands and feet from injuries, cuts, or bruises. ? Avoid wearing tight rings or wristbands. ? Wear loose fitting socks and comfortable, roomy shoes. ? Take ccoe-win-heynifh and prescription medicines only as told by your health care provider. Where to find support ? Raynaud's Association: www.raynauds.org Where to find more information ? National [place] of Arthritis and Musculoskeletal and Skin Diseases: www.niams.nih.gov Contact a health care provider if: ? Your discomfort becomes worse despite lifestyle changes. ? You develop sores on your fingers or toes that do not heal. ? You have breaks in the skin on your fingers or toes. ? You have a fever. ? You have pain or swelling in your joints. ? You have a rash. ? Your symptoms occur on only one side of your body. Get help right away if: ? Your fingers or toes turn black. ? You have severe pain in the affected areas. These symptoms may represent a serious problem that is an emergency. Do not wait to see if the symptoms will go away. Get medical help right away. Call your local emergency services (911 in the [place] Do not drive yourself to the hospital. Summary ? Raynaud's phenomenon is a condition that affects the arteries that carry blood to the fingers, toes, ears, lips, nipples, or the tip of the nose. ? In many cases, the cause of this condition is not known. ? Symptoms of this condition include changes in skin color along with numbness and tingling in the affected area. ? Treatment for this condition includes lifestyle changes and reducing exposure to cold temperatures. Medicines may be used for severe cases of the condition. ? Contact your health care provider if your condition worsens despite treatment. This information is not intended to replace advice given to you by your health care provider. Make sure you discuss any questions you have with your health care provider. Document Revised: 09/11/2021 Document Reviewed: 09/11/2021 [employer] Patient Education ? 2023 [employer] CODING SUMMARY Observed: 05/06/2024 1:38 PM Status: F Source: [facility] HTMLBase 64 [id number] [file] INPATIENT PATIENT SUMMARY Observed: 04/20 2:21 PM Status: C Source: [place] [address] Patient Discharge Instructions Name: REFUGIO KEMP : 1965 Patient Address: [address] [place] [address] Primary Care Provider: Name: Eva Cole APRN, CNP After you are discharged if you find you have any questions, please, call [phone] ext [phone] to speak to a nurse. Discharge Diagnosis: Hallux rigidus of right foot Prescription Information: If you have been given a prescription for narcotics, seek immediate medical attention if you have any difficulty breathing or any sudden status changes such as confusion and sleepiness. If you or anyone you know is experiencing suicidal thoughts, mental health, alcohol and/or drug addiction problems; contact the Mental Health [facility] Recovery [facility] 10/02 Crisis Hotline -Text 4HULZ jv 079179. If you received any narcotics, sedation, or any other medication that causes drowsiness for the next 24 hours, unless otherwise directed: ? Do not drive a car. ? Do not operate machinery such as power tools, lawn mowers, drills, sewing machines, or stoves ? Avoid alcoholic beverages and drugs for allergies, nerves, or sleep ? Do not make important personal or business decisions or sign any legal documents [facility] would like to thank you for allowing us to assist you with your healthcare needs. The following includes patient education materials and information regarding your injury/illness. REFUGIO KEMP has been given the following list of follow-up instructions, prescriptions, and patient education materials: Follow-up Instructions With: Address: When: Estephanie Tejeda [address] [place], [place] [id number] Business (1) In 3 days 05/03/2024 Comments: keep post op appt in [place] With: Address: When: Eva Cole Medications During the course of your visit, your medication list was updated with the most current information. The details of those changes are reflected below: Medications to Continue That Have Not Changed Other Medications atorvastatin (atorvastatin 40 mg oral tablet) 1 tab(s) Oral (given by mouth) every day. Refills: 3. ferrous sulfate (FeroSul 325 mg (65 mg elemental iron) oral tablet) 1 tab(s) Oral (given by mouth) 2 times per day. Refills: 0. pantoprazole (pantoprazole 40 mg oral delayed release tablet) 1 tab(s) Oral (given by mouth) 2 times per day. It is important to always keep an active list of medications available so that you can share with other providers and manage your medications appropriately. As an additional courtesy, we are also providing you with your final active medications list that you can keep with you. atorvastatin (atorvastatin 40 mg oral tablet) 1 tab(s) Oral (given by mouth) every day. Refills: 3. ferrous sulfate (FeroSul 325 mg (65 mg elemental iron) oral tablet) 1 tab(s) Oral (given by mouth) 2 times per day. Refills: 0. pantoprazole (pantoprazole 40 mg oral delayed release tablet) 1 tab(s) Oral (given by mouth) 2 times per day. Take only the medications listed above. Contact your doctor prior to taking any medications not on this list. Diet & Activity Patient Activity Level: Patient Diet: Patient Activity Restrictions: Comment: Patient education materials, if any, will display below Viruses or Bacteria What?s got you sick? Antibiotics only treat bacterial infections. Viral illnesses cannot be treated with antibiotics. When an antibiotic is not prescribed, ask your healthcare professional for tips on how to relieve symptoms and feel better. Usual Cause Illness Viruses Bacteria Antibiotic Needed Cold/Runny Nose NO Bronchitis/Chest Cold (in otherwise healthy children and adults) NO Whooping Cough Yes Flu NO Strep Throat Yes Sore Throat (except strep) NO Fluid in the middle ear (otitis media with effusion) NO Urinary Tract Infection Yes Antibiotics Aren?t Always the Answer www.cdc.gov/getsmart GET SMART Know When Antibiotics Work [place].S. Department of Health and Human Services Centers for Disease Control and Prevention March 2014 INPATIENT CLINICAL SUMMARY Observed: 05/2024 2:21 PM Status: C Source: [facility] SURGERY Clinical Discharge Summary PERSON INFORMATION Name REFUGIO KEMP Age 59 Years 1965 Sex MALE Language Bruneian PCP Eva Cole APRN, TIMOTHY Marital Status Med Service Ambulatory Surgery Acct# Arrival 04/30/2024 11:14:10 Visit Reason SURGERY - RIGHT HALLUX RIGIDUS CHEILECTOMY 1ST MPJ Acuity LOS 038 05:25 Address: [address] [place] [address] Comment: PROVIDER INFORMATION VITALS INFORMATION Vital Sign Triage Latest Temp Oral Temp Temporal Temp Intravascular Temp Axillary Temp Rectal 02 Sat 100 % 98 % Respiratory Rate Peripheral Pulse Rate Apical Heart Rate Blood Pressure / 78 mmHg / 88 mmHg Comment: MEDICAL INFORMATION Allergy Info: No known allergies Prescriptions Given: atorvastatin (atorvastatin 40 mg oral tablet) 1 tab(s) Oral (given by mouth) every day. Refills: 3. ferrous sulfate (FeroSul 325 mg (65 mg elemental iron) oral tablet) 1 tab(s) Oral (given by mouth) 2 times per day. Refills: 0. pantoprazole (pantoprazole 40 mg oral delayed release tablet) 1 tab(s) Oral (given by mouth) 2 times per day. Medication List: Medications to Continue That Have Not Changed Other Medications atorvastatin (atorvastatin 40 mg oral tablet) 1 tab(s) Oral (given by mouth) every day. Refills: 3. ferrous sulfate (FeroSul 325 mg (65 mg elemental iron) oral tablet) 1 tab(s) Oral (given by mouth) 2 times per day. Refills: 0. pantoprazole (pantoprazole 40 mg oral delayed release tablet) 1 tab(s) Oral (given by mouth) 2 times per day. Medications to Continue That Have Not Changed Other Medications atorvastatin (atorvastatin 40 mg oral tablet) 1 tab(s) Oral (given by mouth) every day. Refills: 3. ferrous sulfate (FeroSul 325 mg (65 mg elemental iron) oral tablet) 1 tab(s) Oral (given by mouth) 2 times per day. Refills: 0. pantoprazole (pantoprazole 40 mg oral delayed release tablet) 1 tab(s) Oral (given by mouth) 2 times per day. Medications to Continue That Have Not Changed Other Medications atorvastatin (atorvastatin 40 mg oral tablet) 1 tab(s) Oral (given by mouth) every day. Refills: 3. ferrous sulfate (FeroSul 325 mg (65 mg elemental iron) oral tablet) 1 tab(s) Oral (given by mouth) 2 times per day. Refills: 0. pantoprazole (pantoprazole 40 mg oral delayed release tablet) 1 tab(s) Oral (given by mouth) 2 times per day. Comment: Lab and Radiology Results Laboratory or Other Results This Visit (last charted value for your 04/30/2024 visit) No Laboratory or Other Results This Visit DIET & ACTIVITY Patient Activity Level: Patient Diet: Patient Activity Restrictions: DISCHARGE INFORMATION Discharge Disposition: Discharge Location: [facility] REASON INCOMPLETE INFORMATION PATIENT EDUCATION INFORMATION Instructions: Follow up: With: Address: When: Estephanie Tejeda [address] [place] [address] [facility] In 3 days 05/03/2024 Comments: keep post op appt in [place] office With: Address: When: Eva Cole DIAGNOSIS Hallux rigidus of right foot Comment: PHYS DOC NOTES OPERATIVE REPORT - SURGEON/PHYSICIAN Observed: 04/30/2024 2:10 PM Status: F Source: [facility] Patient: REFUGIO KEMP Age: 59 years Sex: MALE : 1965 Associated Diagnoses: None Author: Estephanie Tejeda DPM Postoperative Information Procedure: cheilectomy 1st mpj right Date/ Time: 04/30/2024 14:00:00 Preoperative Diagnosis: Hallux rigidus right foot . Postoperative Diagnosis: same . Performed by: Estephanie Tejeda DPM. Procedure Performed: Patient was seen in [facility] and brought to the operating room and placed supine position after the administration of anesthesia 14 cc of 2% lidocaine plain was then used in a Rousseau block right foot. A calf tourniquet was placed on the right calf foot and. Ankle were prepped and draped under sterile technique at this time using an Esmarch the foot was exsanguinated and the tourniquet inflated to 250 mmHg. Attention was then brought over to the dorsal aspect of the first MPJ joint were sick centimeter linear incision was made over the anterior medial aspect of the first MPJ right. The incision was brought down through the skin to the subcutaneous tissue and then down to the level of the capsule the extensor hallucis longus was reflected a linear capsulotomy was made where there were several exostoses noted over the medial and dorsal aspect of the first metatarsal and base of the proximal phalanx. Using a McGlamry's took the McGlamery into the first MPJ joint small medium and large to free up adhesions plantarly sagittal saw all removed all exostoses noted from the dorsal medial metatarsal head and the proximal phalanx then using a football bur smoothed out to an anatomical metatarsal head with no exostoses noted but the first MPJ through range of motion which was full at least 30 degrees at this point. Irrigated with copious months of normal saline closed the capsule with 3-0 Vicryl dropped the tourniquet of the calf after 20 minutes and then reapproximated the subcutaneous tissue with 4-0 Vicryl and the skin with 4-0 nylon applied Betadine soaked Adaptic gauze Kerlix and Alexander bandage patient tolerated procedure and anesthesia well with vital signs intact the right foot patient is going to be seen in the office he was given a postop shoeProtectively weight-bear and he will be seen in the office for follow-up and in this note thank you he will rest elevate throughout the weekend he has adequate pain medication that was given to him yesterday he will. Anesthesia: mac with 14cc 2%lidocaine plain with 5cc 0.5%marcaine plain right foot . 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 Specimens Removed: none . Estimated Blood Loss: 10 ml. Complications: None. Grafts/Implants Used: None. [Electronically Signed on: 04/30/2024 14:16 EDT] RondaPaola downingm R DPM[Verified on: 04/30/2024 14:16 EDT] Paola Tejedam R DPM ANESTHESIA NOTE Observed: 04/30/2024 2:08 PM Status: F Source: [facility] Patient: REFUGIO KEMP Age: 59 years Sex: MALE : 1965 Associated Diagnoses: None Author: Julio Curiel MD Postoperative Information Post Operative Note Health Status Allergies: Allergic Reactions (All) No known allergies Problem list: All Problems (Selected) Fatigue / SNOMED CT 159550240 / Confirmed Hyperlipemia / SNOMED CT 88235014 / Confirmed Low back pain / SNOMED CT 155749819 / Confirmed Shoulder pain / SNOMED CT 52866273 / Confirmed Physical Examination Vital Signs (last 24 hrs) Last Charted Temp Temporal 36.7 DegC (APR 30 11:27) Heart Rate Monitored 70 bpm (APR 30:) Resp Rate 14 br/min (APR 30:) SBP H 121 mmHg (APR 30:) DBP H 87 mmHg (APR 30:) Assessment Anesthetic outcome No anesthetic complications noted. Plan Transfer/ Discharge: To home, Patient can be discharged from PACU when criteria met. Condition good. pt did well. no pain. no n/v. hd stable. resp and neuro status at baseline. volujme status adequate [Electronically Signed on: 04/30/2024 14:08 EDT] Julio Curile MD[Verified on: 04/30/2024 14:08 EDT] Julio Curiel MD MAGR POSTOPERATIVE RECORD Observed: 04/20 1:30 PM Status: C [facility] Record Summary Primary Physician: RondachangEstephanie DPM Finalized Date/Time: 05/31/24 14:26:47 Pt. Name: REFUGIO KEMP/Sex: 1965 MALE Med Rec #: [id number] Physician: RondachangEstephanie DPM Financial #: [id number] Pt. Type: D Room/Bed: / Admit/Disch: 04/30/24 11:14:10 - 04/30/24 15:00:00 Institution: Phase II Case Times [facility] Pre-Care Text: Patient is free from s/s of injury. Patient remains free from compromised physical state related to surgery or anesthesia. Patient comfort maintained. Patient/family verbalize understanding of discharge instructions. Entry 1 In PACU II 04/30/24 14:02:00 Discharge from PACU 04/30/24 14:59:00 II Last Modified By: Cindy Mccarty RN 05/31/24 14:26:46 Post-Care Text: The patient remains free from s/s of injury. Patient's vital signs stable, circulation maintained, return to preop mental and physical status, opsite/dressing intact, minimal or absent nausea and vomiting, tolerates po intake. Patient verbalizes adequate pain control. Patient/family express understanding of discharge instructions. Finalized By: Cindy Mccarty RN Document Signatures Signed By: Salvador Cobian RN 04/30/24 15:09 Cindy Mccarty RN 05/31/24 14:26 Unfinalized History Date/Time Username Reason for Unfinalizing Freetext Reason for Unfinalizing 05/31/24 14:26 MHRSCOTT Correct Documentation Decreasing time by 1 minute in order for charges to drop correctly. MAGR INTRAOPERATIVE RECORD Observed: 05/2024 1:30 PM Status: F [facility] Intra-Op Record Summary Primary Physician: Estephanie Tejeda DPM Finalized Date/Time: 04/30/24 14:04:35 Pt. Name: REFUGIO KEMP/Sex: 1965 MALE Med Rec #: [id number] Physician: Estephanie Tejeda DPM Financial #: [id number] Pt. Type: D Room/Bed: / Admit/Disch: 04/30/24 11:14:10 - Institution: Case Times MAGR Entry 1 Patient In Room Time 04/30/24 13:18:00 Out Room Time 04/30/24 14:01:00 Anesthesia Start Time 04/30/24 13:20:00 Stop Time 04/30/24 13:59:00 Surgery Start Time 04/30/24 13:30:00 Stop Time 04/30/24 13:59:00 Last Modified By: Lolis Iverson RN 04/30/24 14:04:30 Case Attendance MAGR Entry 1 Entry 2 Entry 3 Case Attendee Estephanie Tejeda DPM, John M MD Kokinda, Diane RN Role Performed Surgeon - Primary Anesthesiologist of Highway Administrative Engineer Record Time In 04/30/24 13:22:00 04/30/24 13:18:00 04/30/24 13:18:00 Time Out 04/30/24 14:01:00 04/30/24 14:01:00 04/30/24 14:01:00 Procedure Cheilectomy(Right) Cheilectomy(Right) Cheilectomy(Right) Last Modified By: Lolis Iverson RN, Diane RN Kokinda, Diane RN 04/30/24 14:04:19 04/30/24 14:04:19 04/30/24 14:04:19 Entry 4 Entry 5 Case Attendee Lola Ewing CST, CST, Brittany E CSFA CSFA PULP OPERATOR Role Performed Scrub Personnel Riveting Machine Operator Automatic Time In 04/30/24 13:18:00 04/30/24 13:18:00 Time Out 04/30/24 14:01:00 04/30/24 14:01:00 Procedure Cheilectomy(Right) Cheilectomy(Right) Last Modified By: Lolis Iverson RN, Diane RN 04/30/24 14:04:19 04/30/24 14:04:19 Surgical Procedures MAGR Pre-Care Text: A.20 Verifies operative procedure, surgical site, and laterality Im.150 Develops individualized plan of care Entry 1 Procedure Cheilectomy Primary Procedure Yes Primary Surgeon Estephanie Tejeda DPM Modifiers Right Surgeon Comment RIGHT HALLUX RIGIDUS Start 04/30/24 13:30:00 CHEILECTOMY 1ST MPJ Stop 04/30/24 13:59:00 Anesthesia Type MAC Surgical Service Podiatry Wound Class Clean-Contaminated Technique Details Closure Technique Primary Entire procedure No was performed via laparoscope or robotic assistance Last Modified By: Lolis Iverson RN 04/30/24 14:04:23 Post-Care Text: O.730 The patient's care is consistent with the individualized perioperative plan of care General Case Data MAGR Pre-Care Text: A.350.1 Classifies surgical wound Entry 1 Case Information OR MAGR OR 01 Case Level Level 3 Wound Class Clean-Contaminated Specialty Podiatry ASA Class 1 Diagnosis Preop Diagnosis HALLUX RIGIDUS RIGHT Postop Same As Preop Yes FOOT Postop Diagnosis HALLUX RIGIDUS RIGHT FOOT Blunt or No Is the procedure No penetrating injury considered occured prior to Emergent/Urgent? the start of the procedure: Last Modified By: Lolis Iverson RN 04/30/24 13:34:46 Post-Care Text: O.760 Patient receives consistent and comparable care regardless of the setting Time Out MAGR Entry 1 Procedure(s) Cheilectomy(Right) Time Out Checklist Verifications Team Introductions Yes Confirmed Identity, Yes Completed Procedure, Incision Site, and Consent(s) Presence of Yes Site Verification, Yes Necessary Site Marking, Site Procedural Marking Equipment, Devices, Alternative, and/or and Implants Site Marking Verified Exception in Accordance with Facility Policy Anesthesia Review Antibiotic Received No All Anesthesia Yes Within an Concerns Addressed Appropriate Time Interval Prior to Surgical Incision Surgeon Review Anticipated Blood Yes Expected Case Yes Loss Risk Addressed Duration Addressed Critical and Yes Non-Routine Steps to be Performed Addressed Nurse Review Equipment Yes Fire Risk Yes Checks/Concerns Assessment Addressed Completed and Interventions Performed Diagnostic and n/a Sterilization n/a Radiological Test Concerns Addressed Results Displayed are Appropriate and Labeled Other Concerns n/a Addressed Time Out Estephanie Tejeda DPM, Time Out Time 04/30/24 13:29:00 Participants Julio Curiel MD, Lolis Iverson RN, Gildardo PULP OPERATOR, Lola STEPHENS CSFA, [place], Daily E CSFA PULP OPERATOR Last Modified By: Lolis Iverson RN 04/30/24 13:35:02 Patient Positioning MAGR Pre-Care Text: A.280 Identifies baseline musculoskeletal status Im.40 Positions the patient Im.80 Applies safety devices Entry 1 Procedure Cheilectomy(Right) Body Position Supine Left Arm Position Extended on padded arm Right Arm Position Extended on padded arm board board Left Leg Position Extended Right Leg Position Extended Feet Uncrossed? Yes Press Points Checked Yes Positioning Device Arm Boards, Arm Strap, Outcome Met (O.80) Yes Pillow, Safety Strap Last Modified By: Lolis Iverson RN 04/30/24 13:02:54 Post-Care Text: E.290 Evaluates musculoskeletal status O.80 Patient is free from signs and symptoms of injury related to positioning Skin Prep MAGR Pre-Care Text: A.30 Verifies allergies Im.270 Performs skin preparation Im.270.1 Implements protective measures to prevent skin and tissue injury due to chemical sources Entry 1 Skin Prep Syntegrity Prep Agents (Im.270) 7.5% Povidone-Iodine Prep By Lolis Iverson RN Scrub 10% Povidone-Iodine [place] Prep Area (Im.270) Foot, Leg lower Prep Area Details Right Skin Prep Agent Dry Yes Without Pooling Hair Removal Syntegrity Hair Removal Methods No hair removal performed Outcome Met (O.100) Yes Last Modified By: Lolis Iverson RN 04/30/24 13:03:24 Post-Care Text: E.10 Evaluates for signs and symptoms of physical injury to skin and tissue O.100 Patient is free from signs and symptoms of chemical injury Counts Verification MAGR Pre-Care Text: A.20 Verifies operative procedure, surgical site, and laterality A.20.2 Assesses the risk for unintended retained foreign body Im.20 Performs required counts Entry 1 Procedure Cheilectomy(Right) Counts Verification Initial Counts Items included in Sponges, Sharps Initial Counts Lolis Iverson RN, the Initial Count Performed By Lola Ewing CST, CST CSFA Initial Count Time 04/30/24 13:04:00 Counts Verification Final Counts Items Included in Sponges, Sharps Final Count Method Manual Final Count Final Count Status Correct Final Counts Lolis Iverson RN, Performed By Lola Ewing CST, CST CSFA Final Count Time 04/30/24 13:52:00 Surgeon notified of Yes final counts status Outcome Met (O.20) Yes Last Modified By: Lolis Iverson RN 04/30/24 13:52:23 Post-Care Text: E.50 Evaluates results of the surgical count O.20 Patient is free from unintended retained foreign objects Tourniquet MAGR Pre-Care Text: A.240 Assesses baseline skin condition Im.120 Implements protective measures to prevent skin or tissue injury due to mechanical sources Entry 1 Tourniquet Type TOURNQUET/AC OR2 (3603) Cuff Size 18 in Serial Number 3603 Setting 250 mmHg Placement Ankle Padding (Im.120) Yes Placement Details Right Tourniquet Times Inflated 04/30/24 13:30:00 Deflated 04/30/24 13:50:00 Total Time 20 Applied By Daily Washburn E CSFA Removed By Lola Ewing CST, CST PULP OPERATOR CSFA Outcome Met (O.60) Yes Last Modified By: Lolis Iverson RN 04/30/24 13:52:35 Post-Care Text: E.10 Evaluates for signs and symptoms of physical injury to skin and tissue O.60 Patient is free from sign and symptoms of injury caused by extraneous objects Cautery MAGR Pre-Care Text: A.240 Assesses baseline skin condition A.40 Verifies presence of prosthetics or corrective devices Im.50 Implements protective measures to prevent injury due to electrical sources Entry 1 ESU Type Electrosurgical Unit Identification [id number] Number ESU Settings Syntegrity Cut Setting 25 Coag Setting 25 Grounding Pad Details Grounding Pad Yes Verified By Lolis Iverson RN Needed? Grounding Pad Site Table Grounding Pad Grounding Pad Site Right Detail Within Expiration Yes Date? Outcome Met (O.10) Yes Last Modified By: Lolis Iverson RN 04/30/24 13:05:43 Post-Care Text: E.10 Evaluates for signs and symptoms of physical injury to skin and tissue O.10 Patient is free from signs and symptoms of injury related to thermal sources Dressing/Packing MAGR Pre-Care Text: A.350 Assesses susceptibility for infection Im.290 Administer care to wound sites Entry 1 Skin Prep Agent Yes Site Foot Removed Prior to Dressing? Site Details Right Dressing Item Details Dressing Item 4x4's, Petroleum gauze, Tape (Im.290) Elastic Sports Bandage (Im.290) Other (See comment) Outcome Met Yes Last Modified By: Lolis Iverson RN 04/30/24 13:07:51 Post-Care Text: E.200 Evaluates progress of wound healing O.200 Patient's wound perfusion is consistent with or improved from baseline levels General Comments: VASELINE SOAKED IN BETADINE KERLIX USED Departure from OR MAGR Entry 1 Present on Depart Oxygen Via Stretcher Post-op Destination PACU II Skin DFO Condition Dry Description Condition Intact Description Condition Warm Description Report Given To Salvador Cobian RN Airway Maintenance Patient Status Stable Oxygen in Use? Yes Airway Device Simple mask Flow Rate 8 L Last Modified By: Lolis Iverson RN 04/30/24 13:08:22 Case Comments <None> Finalized By: Lolis Iverson RN Document Signatures Signed By: Lolis Iverson RN 04/30/24 14:04 [facility] PREOPERATIVE RECORD Observed: 04/30 1:30 PM Status: F Source: [facility] Pre-Op Record Summary Primary Physician: Estephanie Tejeda DPM Finalized Date/Time: 04/30/24 15:09:40 Pt. Name: REFUGIO KEMP./Sex: 1965 MALE Med Rec #: [id number] Physician: Estephanie Tejeda DPM Financial #: [id number] Pt. Type: D Room/Bed: / Admit/Disch: 04/30/24 11:14:10 - Institution: Pre-Op Case Times [facility] Pre-Care Text: Patient will be optimally prepared for surgery. Patient is free from s/s of injury. Provide information to patient/family related to plan of care. Verify patient allergies. Confirm identity and verify consent before the operative or invasive procedure. Entry 1 Patient Arrival Time 04/30/24 11:24:00 Preop Departure 04/30/24 13:16:00 Last Modified By: Salvador Cobian RN 04/30/24 15:09:37 Post-Care Text: Patient is prepared mentally and physically and is ready for surgery. The patient remains free from s/s of injury. Patient/family express understanding of plan of care and participate in decisions affecting his or her perioperrative plan of care. Allergies documented appropriately. Patient identifiers and consent correct. Finalized By: Salvador Cobian RN Document Signatures Signed By: Salvador Cobian RN 04/30/24 15:09 ANESTHESIA NOTE Observed: 04/30/2024 12:46 PM Status: F Source: [facility] Patient: REFUGIO KEMP Age: 59 years Sex: MALE : 1965 Associated Diagnoses: None Author: Julio Curiel MD Preoperative Information Anesthesia history: Patient history: No difficult intubation, No malignant hyperthermia. Family history: No malignant hyperthermia. Review of Systems Constitutional: Negative. Respiratory: Negative, No shortness of breath. Cardiovascular: Negative, No chest pain. Gastrointestinal: No heartburn. Health Status Allergies: Allergic Reactions (All) No known allergies Current medications: Home Medications (3) Active atorvastatin 40 mg oral tablet 1 tab(s), Oral, Daily FeroSul 325 mg (65 mg elemental iron) oral tablet 1 tab(s), Oral, BID pantoprazole 40 mg oral delayed release tablet 40 mg = 1 tab(s), Oral, BID Problem list: All Problems Fatigue / SNOMED CT 003130054 / Confirmed Hyperlipemia / SNOMED CT 14809939 / Confirmed Low back pain / SNOMED CT 497634439 / Confirmed Shoulder pain / SNOMED CT 85666171 / Confirmed Resolved: History of - hypercholesterolemia / SNOMED CT 7323325252 Canceled: Acute sinusitis / SNOMED CT 80739506 Histories Family History: Heart disease Father () Heart attack Father () Arthritis Mother Procedure history: Endoscopic balloon dilation of duodenal papilla (0725769095) in 2023 at 59 Years. Comments: 04/07/2024 13:27 Tammy Osman RN january upper intestine Colonoscopy (582734065) on 09/09/2023 at 58 Years. Endoscopic clipping for control of duodenal hemorrhage (1678714392) in 2021 at 57 Years. Lithotripsy (216996461) on 07/01/2019 at 54 Years. colonoscopy on 12/25/2015 at 50 Years. Right shoulder pain (8678740373). Social History Electronic Cigarette/Vaping Assessment Electronic Cigarette Use: Never. Electronic Cigarette Use: Never. Electronic Cigarette Use: Never. Electronic Cigarette Use: Never. Alcohol Assessment Use: Never. Tobacco Assessment Never (less than 100 in lifetime) Tobacco Use:. Never (less than 100 in lifetime) Tobacco Use:. Never tobacco user Tobacco Use:. Never tobacco user Tobacco Use:. Substance Abuse Assessment Substance use: Never. Employment/School Assessment Employed, Work/School description: [employer]. Home/Environment Assessment Lives with Spouse, Fnwjqe-op-Uqk every 2 months. Living situation: Home/Independent. Nutrition/Health Assessment Caffeine intake amount: 6 servings a day. Exercise Assessment Exercise frequency: 3-4 times/week. Exercise type: Run, push-ups, situps. Other Assessment Comment: POB: [place], [place] . Social & Psychosocial Habits Alcohol 06/23/2018 Alcohol Use: Never Employment/School 06/23/2018 Status: Employed Description: [employer] Exercise 06/23/2018 Times per week: 3-4 times/week Exercise type: Run, push-ups, situps Home/Environment 06/23/2018 Lives with: Gpunbp-fj-Yek every 2 months, Spouse Living situation: Home/Independent Nutrition/Health 06/22/2018 Caffeine intake amount: 6 servings a day Other Comment: POB: [place], [place] - 12/29/2023 14:27 - Nida Singh Substance Use 06/23/2018 Substance use: Never Tobacco 09/11/2020 Smoking tobacco use: Never (less than 100 in l 10/08/2021 Smoking tobacco use: Never (less than 100 in l 10/15/2022 Smoking tobacco use: Never tobacco user 12/29/2023 Smoking tobacco use: Never tobacco user Electronic Cigarette/Vaping 09/11/2020 Electronic Cigarette Use: Never 10/08/2021 Electronic Cigarette Use: Never 10/15/2022 Electronic Cigarette Use: Never 12/29/2023 Electronic Cigarette Use: Never . Physical Examination Vital Signs (last 24 hrs) Last Charted Temp Temporal 36.7 DegC (APR 30) Heart Rate Monitored 72 bpm (APR 30) Resp Rate 16 br/min (APR 30) SBP H 124 mmHg (OCT 11 11:27) DBP H 86 mmHg (OCT 11 11:27) Review / Management Laboratory Results Plan [place] [employer] Anesthesiologists (ASA) physical status classification: Class I. Anesthetic Preoperative Plan Anesthesia: Monitored anesthesia care. Anesthetic plan, risks, benefits, and alternatives discussed with the patient and/or family. Patient verbalized understanding. [Electronically Signed on: 04/30/2024 12:46 EDT] Julio Curiel MD[Verified on: 04/30/2024 12:46 EDT] Julio Curiel MD HISTORY AND PHYSICAL Observed: 11:15 AM Status: F Source: [place] [id number]#1.00OTGTIFF PROVIDER ORDERS Observed: 04/30/2024 11:14 AM Status: F Source: [place] [id number]#1.00OTGTIFF CONSENT FORMS Observed: 04/30/2024 11:14 AM Status: F Source: [place] [id number]#1.00OTGTIFF RELEASE OF INFORMATION Observed: 11:14 AM Status: F Source: [place] [id number]#1.00OTGTIFF PROGRESS NOTE - NURSE Observed: 04/29/20 9:31 AM Status: F Source: [facility] Pre-op call made to pt. Pt vicky monaco understanding of arrival time of 1130 on 04/30/24 and NPO after MN. [Electronically Signed on: 04/29/2024 09:33 EDT] Salvador Cobian RN L[Verified on: 04/29/2024 09:33 EDT] Salvador Cobian RN L CODING SUMMARY Observed: 04/24/2024 8:06 AM Status: F Source: [facility] HTMLBase 64 DexheksoLIn9pMw+PGhlYWQ+VU4QHFTuE41tqQJzjX6nX2GAGGpWWednDLLYAIlSTcLwcmKxJD3usJXp ZXJu [file] YWLpRx83G4Zndb89L5z8vCe+ CODING SUMMARY Observed: 04/23/2024 8:48 AM Status: F Source: [facility] [employer] 64 PfpvwqjoCWg7nJe+PGhlYWQ+LS2YRPPyY56xlCKckW2oR0KXLJlPQxqkSAZXXFmTRwRafsNbGF7skFZh ZXJu [file] Pjxici8+QYIpOx15V1Hkhd68H5k9eWn+ CODING SUMMARY Observed: 04/21/2024 11:08 AM Status: F Source: [facility] [employer] 64 PqukbscxELh4vCv+PGhlYWQ+RG4RXMOwL66hiNBglH1pD5CFMNiDLfjsWQIEPBcKKbYpqxTxXB2akWPv ZXJu [file] N3YsPysaTbbmbg0+VCTaOx76Z5Yzco01E8u6vDb+ ALLERGIES DATE TYPE / CODE NAME / CODE REACTION SEVERITY SOURCE 10/21/2024 Drug Allergy/5330414 02(SNOMED CT) No Known Allergies/R165058838( RXNORM) [facility] /698948170(SN OMED CT) No Known Medication Allergies [facility] Drug/507453013( SNOMED CT) No known allergies [facility] Drug/059974334( SNOMED CT) Unknown [facility] l ENCOUNTERS ADMIT/DISCHARGE ACCOUNT NUMBER ADMITTING ENCOUNTER CLASS LOCATION SOURCE 10/25/2024/10/26/19 [id number] [facility] 1 [facility] 09/29/2024/09/30/19 [id number] [facility] 09/01/2024/09/01/19 [id number] Apurva Kay [facility] ding:[facility] 07/28/2024/07/28/19 25 [id number] Ambulatory Building:[facility] 07/28/2024/07/28/19 25 [id number] Ambulatory Building:[facility] 06/23/2024/06/23/20 24 [id number] Ambulatory Building:[facility] 06/23/2024/06/23/20 24 [id number] Ambulatory Building:[facility] 05/27/2024/05/27/20 24 [id number] Ambulatory [facility] 05/24/2024/05/24/20 24 [id number] Ambulatory Building:NOM S PCF POD [facility] 05/10/2024/05/10/20 24 [id number] Ambulatory Building:NOM S PCF POD [facility] 05/03/2024/05/03/20 24 [id number] Ambulatory Building:NOM S PCF POD [facility] 04/30/2024/04/30/20 24 [id number] Estephanie Tejeda Ambulatory [place] ding:[facility] 04/29/2024 [id number] Pola Chavarria [facility] 04/07/2024/04/07/20 24 [id number] Estephanie Tejeda [facility] 03/30/2024/03/30/20 24 [id number] Jhonna Lu Ambulatory [place] ding: LAB [facility] 11/26/2023/05/05/20 24 [id number] Johnna Lu Ambulatory [place] ding: ONCOLOGY [facility] 06/23/2018/06/23/20 18 [id number] [facility]ulatory [facility] PAYERS ENCOUNTER GUARANTOR PAYER SUBSCRIBER SOURCE 10/25/2024 REFUGIO MEJIA: [address] [facility] RDTel: () Primary Insurance:[facility] CLAIMPolicy Number: [id number] Date:1799-07-20 REFUGIO RAMOS [facility] 09/29/2024 Refugio [id number] [place], [place] [address]Uta: () Primary Insurance:Caro CenterPolicy Number: [id number] Date:3192-03-37XZ [address] [address]QG: Refugio LuisB: [id number] [place], [place] [address]Egu: () [facility] 09/29/2024 Secondary Insurance:Self PayPolicy Number: Effective Date:2024-09-14 [facility]/2024 REFUGIO MEJIA: [address] [place], [place] [address]Xoj: () Primary Insurance:[facility] Number: [id number] Date:5544-21-53Gkap Name:Other Gov [address], [place] [address]SD: REFUGIO LOCKWOOD JUSTODOB: [id number] [address] Beckman [facility], [place] [address]Mkw: (HP) (WP) [facility] 07/28/2024 REFUGIO Elizabeth JUSTODOB: [address] [facility], [place] [address]Gxy: (HP) Primary Insurance:TRICAREPolic y Number: [id number] Date:2018-03-18 REFUGIO Elizabeth JUSTODOB: [id number] [address] [place] [address] [facility] EPIC 07/28/2024 REFUGIO Elizabeth JUSTODOB: [address] Beckman [facility] [place], [place] [address]Fqh: () Primary Insurance:TRICAREPolic y Number: [id number] Date:2018-03-18 REFUGIO Elizabeth JALILNNDOB: [id number] [address] [address] [facility] 06/23/2024 REFUGIO Elizabeth JUSTODOB: [address] Beckman [facility] [place], [place] [address]Wxz: () Primary Insurance:TRICAREPolic y Number: [id number] Date:2018-03-18 REFUGIO Elizabeth JUSTODOB: [id number] [address] [address] [facility] EPIC 06/23/2024 REFUGIO Elizabeth JALILNNDOB: [address] Beckman [facility], [place] [address]Ewd: () Primary Insurance:TRICAREPolic y Number: [id number] Date:2018-03-18 REFUGIO Glenn JALILNNDOB: [id number] [address] [place] [address] [facility] EPIC 05/27/2024 REFUGIO LUISB: [address] [place], [place] [address]Yzn: () Primary Insurance: EASTPolicy Number: [id number] Date:4855-54-22Votd Name:Other Gov Trad[address]gbh[place]ais, [place] [address]SY: 843 REFUGIO LOCKWOOD JUSTODOB: [id number] [place], [place] [address]Rzk: (HP) () [facility] 05/24/2024 REFUGIO Elizabeth JUSTODOB: [address] [place], [place] [address]Ukk: () Primary Insurance:TRICAREPolic y Number: [id number] Date:2018-03-18 REFUGIO Elizabeth JUSTODOB: [id number] [address] [place] [address] [facility] EPIC 05/10/2024 REFUGIO Elizabeth JUSTODOB: [address] [place], [place] [address]Yoo: () Primary Insurance:TRICAREPolic y Number: [id number] Date:2018-03-18 REFUGIO Elizabeth JUSTODOB: [id number] [address] VERA [facility] [place] [address] [facility] EPIC 05/03/2024 REFUGIO Elizabeth JUSTODOB: [address] [place], [place] [address]Vlr: () Primary Insurance:TRICAREPolic y Number: [id number] Date:2018-03-18 REFUGIO Elizabeth JUSTODOB: [id number] [address] VEAR [place] [address] [facility] EPIC 04/30/2024 REFUGIO LOCKWOOD JUSTODOB: [address] Beckman [facility] [place], [place] [address]Hxz: (HP) Primary Insurance: EASTPolicy Number: [id number] Date:9933-57-64Hqxe Name:Other Gov TradP O [address] [address]KE: REFUGIO KEMPB: [id number] [place], [place] [address]Cud: (HP) (WP) [facility] 04/29/2024 Primary Insuranc e:Self PayPolicy Number: Effective Date:2023-07-17 [facility] 04/07/2024 REFUGIO KEMPSLIME: [address] [place], [place] [address]Mtq: (HP) Primary Insurance: EASTPolicy Number: [id number] Date:0735-66-14Ugzl Name:Other Gov TradP O [address] [address]MG: REFUGIO LOCKWOOD ISMAELB: [id number] [place], [place] [address]Dpx: (HP) (WP) [facility] 03/30/2024 REFUGIO LOCKWOOD ROBERTO: [address] [place], [place] [address]Hop: (HP) Primary Insurance: EASTPolicy Number: [id number] Date:4424-31-37Gizk Name:Other Gov TradP O [address] [address]OM: REFUGIO LOCKWOOD ROBERTO: [id number] [address] [place], [place] [address]Mgw: (HP) (WP) [facility] 11/26/2023 REFUGIO LOCKWOOD ROBERTO: [address] [place] [address]Wpr: () Primary Insurance: EASTPolicy Number: [id number] Date:1450-88-63Isql Name:Other [facility] [address] [place] [address]: REFUGIO LOCKWOOD ISMAELB: [id number] [place] [address]Ivo: (HP) () [facility] 06/23/2018 REFUGIO Glenn LUISB: [address] [place] [address]Uzv: () Primary Insurance:/[employer] [facility][NOTE 3] SERVICESPolicy Number: [id number] Date:2017-09-110791-32-33Mjst Name:Other [facility] [address] [place] [address]SP: REFUGIO Elizabeth ISMAELB: [id number] [address] [place] [address]Exx: () [facility] 06/23/2018 Secondary Insurance:SELF PAY AFTER INSURANCEPolicy Number: ABCEffective Date:2017-09-111469-61-15Cnov Name:Self [address] [place] [address]WE: 419 REFUGIO Glenn LUISB: [id number] [address] [place] [address]Gdv: () [facility]
--- OUTSIDE RECORDS SUMMARY | 2025-04-18 10:00 | XMS_ITS ---
Author Organization [facility] Address [address] [place] [phone] Care Team Providers Care Digital Publishing Specialist Name Role Phone Khang Dinero Primary Care Provider UnavailApurva Stuart Unavailable [phone] Morgan Jordan [phone] REASON FOR VISIT Mckinley's esophagus Encounters Encounter Location Date Provider Diagnosis [facility] [address] [place] [phone] 04/18/2025 Morgan Jordan Plan Of Treatment No Information Progress Notes * Refugio KEMP EDOB:1965 (60 yo M)Acc No.[id number]:04/18/2025 Patient: Ale Refugio ZURITA Provider: Neil Jordan MD :1965 A ge:60 Y S ex:Male Date:04/18/2025 [facility] [facility] [place] Pcp:Khang Dinero * Images: Billing Information: * Visit Code: * Procedure Codes: * Electronic signature of Greg Jordan MD on 04/19/2025 at 08:31 AM EDT Sign off status: Pending * Provider: Neil Jordan MD Date: 04/18/2025 Generated for Printi ng/Faxing/eTransmitting on: 04/19/2025 08:31 AM EDT
--- OUTSIDE RECORDS SUMMARY | 2025-04-19 08:31 | XMS_ITS | Encounter Summary ---
Author Organization [facility] Address [address] [place] [address] Care Team Providers Care Oim Architect Name Role Phone Eva Cole MD Unavailable [phone] Juan Carlos Castellano MD Primary Care Provider [phone] Encounter Details Date Type Department Care Team ([facility] st Contact Info) Description 05/03/2024 Abstract [facility] [address] [place] [address] Jan Roberts, DPM FACFAS [address] [place] [address] Social History Tobacco Use Types [...] on filedocumented in this encounter Care Teams Oim Architect Relationship Specialty Start Date End Date Juan Carlos Castellano MD [address] [place] [address] PCP - General Family Medicine 04/06/24 Eva Cole MD [address] [place] [address] Referring Physician Neurology 03/15/24 documented as of this encounter
--- OUTSIDE RECORDS SUMMARY | 2025-04-19 08:31 | XMS_ITS | Encounter Summary ---
Author Organization [facility] Address [address] [place] [address] Care Team Providers Care Production Control Specialist Name Role Phone Eva Cole MD Unavailable Juan Carlos Castellano MD Primary Care Provider Encounter Details Date Type Department Care Team (Late st Contact Info) Description 03/18/2024 Abstract [facility] [address] [place] [address] Jan Roberts, DPM FACFAS [address] [place] [address] Social History Tobacco Use Types Packs/Day Years [...] on filedocumented in this encounter Care Teams Production Control Specialist Relationship Specialty Start Date End Date Juan Carlos Castellano MD [address] [place] [address] PCP - General Family Medicine 04/06/24 Eva Cole MD [address] [place] [address] Referring Physician Neurology 03/15/24 documented as of this encounter
--- OUTSIDE RECORDS SUMMARY | 2025-04-19 08:31 | XMS_ITS | Clinical Summary ---
Author Organization [employer] tem Address [id number] [address] [place] [address] Care Team Providers Care Baker Chef Name Role Phone Unavailable Primary Care Provider [...] Tdap) 1986 COVID-19 Vaccine (2 - season) 2025 Influenza Vaccine 03/21/2025 04/19/2024 Zoster (Shingles) Vaccine Completed 11/25/2022, 08/2022 Medical Devices Not on file Insurance [facility]
--- OUTSIDE RECORDS SUMMARY | 2025-04-19 08:31 | XMS_ITS | Patient Health Record ---
Author Organization [facility] Address [address] [id number] Care Team Providers Care Pretzel Twister Name Role Phone Khang Dinero Primary Care Provider Apurva Paredes Unavailable [phone] JulianMorgan perry Unavailable [phone] Allergies No Known Allergies Results Component Value Reference Range Notes Barium Swallow Reviewed date:09/03/2024 10:02:08 AM Interpretation: [...] Status Risk Notes Problem Iron deficiency anemia (72359810) Iron deficiency anemia (D50.9) Active confirmed Problem Dysphagia (33338001) Dysphagia (R13.10) Active confirmed Problem Duodenal ulcer (75174801) Duodenal ulcer (K26.9) Active confirmed Problem Mckinley's esophagus (880322077) Mckinley's esophagus (K22.70) Active confirmed Problem Hematemesis (8621605) Hematemesis, unspecified whether nausea present (K92.0) Active confirmed Vital Signs Heart Rate 68 /min 10/28/2024 Blood pressure diastolic 80 mm Hg 10/28/2024 Height 68 in 10/28/2024 Blood pressure systolic 130 mm Hg 10/28/2024 Weight 190 lbs 10/28/2024 BMI 28.89 kg/m2 10/28/2024 Encounters Encounter Location Date Provider Diagnosis [facility] [address] [place] [address] [id number] 04/18/[address] [facility] [address] [place] [address] [id number] 06/09/2024 Apurva Kay Dysphagia R13.10 and Mckinley's [address] K22.70 [facility] [address] [place] [address] [id number] 10/28/2024 Apurva Kay Dysphagia R13.10 and Mckinley's esophagus K22.70 [facility] [address] [place] [address] [id number] 09/03/2024 Apurvavero Kay Dysphagia R13.10 [facility] [address] [place] [address] [id number] 10/28/[address] [facility] [address] [place] [address] [id number] 11/15/[address] [facility] [address] [place] [address] [id number] 03/16/2025 Apurva Kay Assessments Encounter Date Diagnosis (ICD Code) Assessment Notes Treatment Notes Treatment Clinical Notes Section Notes 06/09/2024 Dysphagia (ICD-10 - R13.10) Given dysphagia [...] is not currently interested in pursuing additional testing/treatmen t, telling me that he is getting used [...] is not currently interested in pursuing additional testing/treatmen t, telling me that he is getting used [...] Insured Coverage Start Date Coverage End Date formerly [facility] [address] [place] [phone] [id number] Refugio Soto Self - patient is the [...]
--- OUTSIDE RECORDS SUMMARY | 2025-04-19 08:31 | XMS_ITS | Clinical Summary ---
Author Organization [facility] Address [address] [place] [address] Care Team Providers Care Apron Cleaner Name Role Phone Eva Cole MD Unavailable [phone] Juan Carlos Castellano MD Primary Care Provider Allergies No known active allergies Medications atorvastatin (Lipitor) 40 MG tablet 1 tab(s), Oral, Daily, # 90 tab(s), 3 Refill(s), Pharmacy: [facility], TAKE 1 TABLET DAILY, 172.72, [...] FIT 1965 Sigmoidoscopy 1965 FOBT 08/14/2023 08/14/2022 Influenza Vaccine (#1) 2025 , 05/26/2022, 05/06/2021, Additional history exists Colonoscopy 09/28/2033 09/29/2023, 09/29/2023, 08/22 Colorectal Cancer Screening 09/28/2033 Insurance Care Teams Apron Cleaner Relationship Specialty Start Date End Date Juan Carlos Castellano MD [address] [place] [address] PCP - General Family Medicine 04/06/24 Eva Cole MD [address] [place] [address] Referring Physician Neurology 03/15/24
[2025-04-19 10:26] LABS: Prostate Specific Antigen Dx 0.71 ng/mL (<=4.00)
== END 2025-04-19 08:28 | disposition home or self-care (01) ==
LOC: LAB 08:29
PROVIDERS: Visit Provider Urology
DX: R97.20 Elevated prostate specific antigen [PSA] (principal)
CPT/HCPCS: 36415; 84153